=== PATIENT | female | born 1970 | race Caucasian/White ===

== ENCOUNTER → 2022-02-11 | Outpatient (CLI) | payer BC ==
--- NOTE | 2022-02-16 15:50 | MM ---
Reason for Exam: Screening (asymptomatic). Last mammogram was performed 10 year(s) and 0 month(s) ago. Patient History: Menarche at age 11. First Full-Term at age 29. Premenopausal. Patient used Hormonal Contraceptives for 13 years. Paternal grandmother had breast cancer. Risk Values: Minna 5 year model risk: 1.2%. NCI Lifetime model risk: 10.6%. Prior Study Comparison: 08/29/2002 Bilateral Special View Mammogram, [facility]. 03/02/2012 Bilateral Screening Mammogram, [facility]. Tissue Density: The breast tissue is heterogeneously dense. This may lower the sensitivity of mammography. Findings: Analyzed By CAD. There is no suspicious group of microcalcifications or new suspicious mass in either breast. Overall Assessment: Negative, BI-RAD 1 Management: Screening Mammogram of both breasts in 1 year. A clinical breast exam by your physician is recommended on an annual basis and results should be correlated with mammographic findings. Electronically signed and approved by: Jayson Clancy DO
== END | disposition home or self-care (01) ==
LOC: RADMAMWWP 07:52
PROVIDERS: ATTEND Family Medicine
DX: Z12.31 Encounter for screening mammogram for malignant neoplasm of breast (principal); Z80.3 Family history of malignant neoplasm of breast
CPT/HCPCS: 77063; 77067

== ENCOUNTER → 2024-06-03 | Outpatient (CLI) | payer BC ==
--- NOTE | 2024-06-03 23:13 | US ---
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 FINDINGS: GLAND SIZE: Right Lobe: 4.3 x 2.0 x 1.5 cm Overall Parenchyma: Heterogeneous Left Lobe: 5.0 x 1.9 x 1.5 cm Overall Parenchyma: Heterogeneous Isthmus Thickness: 0.34 cm NODULES RIGHT: # of nodules measured on right: 0 LEFT: # of nodules measured on left: 1 1. 1.0 X 0.6 x 0.8 cm, lower mid, solid or almost completely solid, hypoechoic nodule, which is wid er than tall, with smooth margins, without echogenic foci. TR 4. ISTHMUS: # of nodules measured in the isthmus: 0 Bilateral neck scanned, no evidence of lymphadenopathy. Subcentimeter nodules noted throughout the left thyroid IMPRESSION: 1. Moderately suspicious nodule left lobe thyroid. Follow-up exam in one year recommended. 2017 ACR TI-RADS LEVEL: TR-RADS 4 - Moderately Suspicious: Follow if > 1 cm, FNA if > 1.5 cm *Highest TI-RADS level nodule reported [email or web address] [facility], , 06/03/2024 11:11 PM
--- NOTE | 2024-06-03 23:17 | US ---
EXAMINATION TYPE: US transvaginal DATE OF EXAM: 06/03/2024 COMPARISON: CT 2013, ultrasound 07/07/2013 CLINICAL INDICATION: Female, 54 years old with history of R10.2 PELVIC AND PERINEAL PAIN; Menopausal; A0; Hx tubal ligation, ablation. TECHNIQUE: Transvaginal (TV). Transvaginal sonographic images were medically necessary to better assess the following anatomy: Doppler imaging: Not performed. FINDINGS: Date of LMP: Menopausal EXAM MEASUREMENTS: Uterus: 10.7 x 6.9 x 6.7 cm Right Ovary: Not visualized due to bowel gas. Left Ovary: Not visualized due to bowel gas. 1. Uterus: Anteverted Uterine fibroid measuring 6.2 x 5.9 x 6.2cm. Previous measurement 3.4 x 3.3 x 2.5 cm in 2013. 2. Endometrium: Unable to delineate 3. Right Ovary: Obscured by overlying bowel gas 4. Left Ovary: Obscured by overlying bowel gas 5. Bilateral Adnexa: wnl 6. Posterior cul-de-sac: wnl IMPRESSION: 1. Enlarging uterine fibroid. 2. Endometrial canal is ill-defined. Some fluid may be within the endometrial canal and lower uterine segment [facility], , 06/03/2024 11:14 PM
== END | disposition home or self-care (01) ==
LOC: RADUSWWP 15:32
PROVIDERS: ATTEND Family Medicine
DX: E04.0 Nontoxic diffuse goiter (principal); R10.2 Pelvic and perineal pain; D25.9 Leiomyoma of uterus, unspecified; Z78.0 Asymptomatic menopausal state; Z98.51 Tubal ligation status
CPT/HCPCS: 76536; 76830

== ENCOUNTER → 2024-11-29 | Outpatient (CLI) | payer BC ==
--- NOTE | 2024-11-29 13:54 | US ---
EXAMINATION TYPE: US thyroid st tissue head/neck DATE OF EXAM: 11/29/2024 COMPARISON: NONE CLINICAL INDICATION: Female, 54 years old with history of E04.2 NONTOXIC MULTINODULAR GOITER; Follow up nodules. TECHNIQUE: Grayscale and color Doppler imaging of the thyroid gland. FINDINGS: GLAND SIZE: Right Lobe: 5.0 x 1.7 x 2.0 cm Overall Parenchyma: heterogeneous Left Lobe: 4.8 x 1.9 x 1.5 cm Overall Parenchyma: heterogeneous Isthmus Thickness: 0.4 cm NODULES RIGHT: # of nodules measured on right: 0 LEFT: # of nodules measured on left: 2 1. 1.0 X 0.8 x 0.8 cm, lower mid, solid or almost completely solid, hyperechoic nodule, which is wi glory than tall, with smooth margins, without echogenic foci. TR4 Prior size: 1.0 x 0.6 x 0.8 cm 2. 0.9 X 0.8 x 0.7 cm, mid medial, solid or almost completely solid, isoechoic nodule, which is wi glory than tall, with smooth margins, without echogenic foci. TR 3 Prior size: No prior ISTHMUS: # of nodules measured in the isthmus: 0 Bilateral neck scanned, no evidence of lymphadenopathy. IMPRESSION: Moderately suspicious nodule left lobe thyroid. Follow-up recommended Highest TI-RADS level nodule reported: 2017 ACR TI-RADS LEVEL: TI-RADS 4 - Moderately Suspicious: Follow if > 1 cm, FNA if > 1.5 cm TI-RADS assessment score and recommendation for follow-up based on appropriate scoring and treatment protocols. TR1 Benign No FNA TR2 Not suspicious No FNA TR3: If nodule size is ? 2.5 cm, FNA is recommended. If nodule size is ? 1.5 cm, follow-up imaging at 1, 3, and 5 years is recommended. TR4: If nodule size is ? 1.5 cm, FNA is recommended. If nodule size is ? 1.0 cm, follow-up imaging at 1, 2, 3, and 5 years is recommended. TR5: If nodule size is ? 1.0 cm, FNA is recommended. If nodule size is ? 0.5 cm, annual follow-up for up to 5 years is recommended. TR 1 thyroid nodules have a 0.3 % risk of malignancy. TR 2 thyroid nodules have a 1.5 % risk of malignancy. TR 3 thyroid nodules have a 4.8 % risk of malignancy. TR 4 thyroid nodules have a 9.1 % risk of malignancy. TR 5 thyroid nodules have a 35 % risk of malignancy. [email or web address] [facility], , 11/29/2024 1:52 PM
== END | disposition home or self-care (01) ==
LOC: RADUSWWP 13:20
PROVIDERS: ATTEND Internal Medicine Endocrinology, Diabetes & Metabolism
DX: E04.2 Nontoxic multinodular goiter (principal)
CPT/HCPCS: 76536